=== PATIENT | male | born 1970 | race Asian ===

== ENCOUNTER 2020-12-16 14:28 | Outpatient (CLI) | payer OTHER, SELFPAY | END 2020-12-16 14:29 | disposition home or self-care (01) | LOC: ANHCOVIDVC 14:28 | DX: Z23 Encounter for immunization (principal) | CPT/HCPCS: 0001A; 91300 ==

== ENCOUNTER 2021-01-06 14:27 | Outpatient (CLI) | payer OTHER, SELFPAY | END 2021-01-06 14:28 | disposition home or self-care (01) | LOC: ANHCOVIDVC 14:27 | DX: Z23 Encounter for immunization (principal) | CPT/HCPCS: 0002A; 91300 ==

== ENCOUNTER 2023-06-27 01:29 | Day surgery (SDC) | payer OTHER, SELFPAY ==
[2023-06-11 15:03] VITALS: BMI 25.9
[2023-06-27 06:15] VITALS: BP 134/91; PULSE 105; RESP 18; TEMP 36.6; O2SAT 99
[2023-06-27] MEDS: LACTATED RINGERS 1,000 ML 150 ML IV CONT (06:24)
--- NOTE | 2023-06-27 07:20 | WPDANESEPPF ---
Anes - Initial Pre Proc Eval Procedure: Operation Date: 06/27/23 07:30 Proposed Procedures p Screening Colonoscopy - Juan Jimenez MD Date/Time: 06/27/23 07:20 Surgeon: Juan Jimenez MD Pre Op Diagnosis: neoplasm screening Patient Data Age: 52 Gender: M Height: 1.78 m Weight: 81.2 kg Last Vital Signs Temp 97.8 F 06/27/23 06:15 Pulse 105 H 06/27/23 06:15 Resp 18 06/27/23 06:15 BP 134/91 H 06/27/23 06:15 Pulse Ox 99 06/27/23 06:15 O2 Del Method Room Air 06/27/23 06:15 Allergies Allergy/AdvReac Type Severity Reaction Status Date / Time peach Allergy Rash Verified 06/27/23 06:14 Dust Allergy Unknown Other Uncoded 06/27/23 06:14 Home Medications Medication Instructions Recorded Confirmed Type chlorthalidone 25 mg tablet 25 mg PO DAILY 06/11/23 06/11/23 History olmesartan 20 mg tablet 20 mg PO DAILY 06/11/23 06/11/23 History Patient hx anesthesia problems: none Family hx anesthesia problems: none Results Review: All pre-operative results and documents have been reviewed as part of the pre-operative evaluation. [facility] Social History Social History Smoking packs per day: 1 Smoking cigarettes per day: 20.0 Years smoked: 13 Smoking pack-years: 13.00 Smoking status: Former smoker Tobacco type: cigarettes Alcohol intake: never Substance use: never Substance use type: does not use Living arrangements: with family Spiritual care concerns: No Anes - Eval Final PreProcedure Day of Procedure 06/27/23 07:20 Patient weight: normal Heart: regular rate and rhythm Lungs: clear to auscultation Airway: Mallampati scale class II Neurological: alert and oriented Last oral intake: >/= 8 hours ASA classification: II Emergent: no Anesthetic plan: proceed Anesthesia type and monitoring: general GIVS and standard monitoring Results Review: All pre-operative results and documents have been reviewed as part of the pre-operative evaluation. Informed Consent: The patient's anesthetic plan and its attendant risks and benefits were discussed with the patient/family/POA. Questions were solicited and answers provided to the satisfaction of the patient/family/POA.
--- NOTE | 2023-06-27 07:26 | PM.HPGS ---
History of Present Illness History of Present Illness Consent: Risks, benefits, and alternatives have been discussed and questions answered. Patient agrees to proceed with procedure. Chief complaint: neoplasm screening Narrative: Maura Pino is a 52 year old male here for first screening colonoscopy Review of Systems Constitutional: Constitutional: Denies headache(s) and Denies weakness Eyes: Eyes: Denies blurry vision ENT: Reports Normal hearing present, Denies headache(s) and Denies neck pain Cardiovascular: Cardiovascular: Denies chest pain and Denies dyspnea Respiratory: Respiratory: Denies dyspnea Gastrointestinal: Gastrointestinal: Reports no additional gastrointestinal complaints Genitourinary: Genitourinary: Denies dysuria Musculoskeletal: Musculoskeletal: Denies neck pain Integumentary/Breasts: Skin/Breast: Denies dry skin Neurologic: Reports Normal hearing present, Denies headache(s) and Denies weakness Psychiatric: Psychiatric: Denies anxiety Endocrine: Endocrine: Denies change in body appearance Hematologic/Lymphatic: Hematologic/Lymphatic: Denies easy bleeding Allergic/Immunologic: Allergic/Immunologic: Denies urticaria [facility] Past Medical History Medical History (Updated 06/27/23 @ 07:26 by Juan Jimenez MD) Colon cancer screening Social History Social History Smoking packs per day: 1 Smoking cigarettes per day: 20.0 Years smoked: 13 Smoking pack-years: 13.00 Smoking status: Former smoker Tobacco type: cigarettes Alcohol intake: never Substance use: never Substance use type: does not use Living arrangements: with family Spiritual care concerns: No Meds Home Medications and Allergies Home Medications Medication Instructions Recorded Confirmed Type chlorthalidone 25 mg tablet 25 mg PO DAILY 06/11/23 06/11/23 History olmesartan 20 mg tablet 20 mg PO DAILY 06/11/23 06/11/23 History Allergies Allergy/AdvReac Type Severity Reaction Status Date / Time peach Allergy Rash Verified 06/27/23 06:14 Dust Allergy Unknown Other Uncoded 06/27/23 06:14 Vital Signs Vital Signs - 24 hr 06/27/23 06:15 Temperature 97.8 F Pulse Rate 105 H Respiratory Rate 18 Blood Pressure 134/91 H Pulse Oximetry 99 Oxygen Delivery Room Air Exam Const: General: comfortable and no acute distress HENMT: Face/Nose/Sinus: Normal nares present Eyes: General: appearance normal, both eyes and all related structures Neck: Neck: no JVD Resp: Auscultation: clear to auscultation bilaterally Cardio: Rate: regular rate Rhythm: regular rhythm GI: Inspection: non-distended GI Palp: Yes Soft to palpation Skin: General skin exam: normal color Neuro: General: gait normal Speech: normal speech Extrem: General: normal to inspection Psych: Mental Status: mental status grossly normal Assessment and Plan Assessment and plan (1) Colon cancer screening: Code(s): Z12.11 - Encounter for screening for malignant neoplasm of colon Status: Acute Assessment and Plan: colonoscopy
[2023-06-27 07:42] VITALS: BP 107/69; PULSE 88; RESP 22; O2SAT 100
[2023-06-27 07:52] VITALS: BP 122/84; PULSE 91; RESP 18; O2SAT 100
[2023-06-27 08:02] VITALS: BP 135/92; PULSE 79; RESP 16; O2SAT 100
== END 2023-06-27 08:14 | disposition home or self-care (01) ==
PROVIDERS: PCP Physician Assistant; Visit Provider Internal Medicine Gastroenterology
PROC: 0DJD8ZZ Inspection of Lower Intestinal Tract, Via Natural or Artificial Opening Endoscopic (ICD-10-PCS; CPT 45378; principal; 2023-06-27 07:30)
DX: Z12.11 Encounter for screening for malignant neoplasm of colon (principal); K64.8 Other hemorrhoids; Z87.891 Personal history of nicotine dependence
CPT/HCPCS: 45378; J2704; J7120